=== PATIENT | female | born 1985 ===

== ENCOUNTER 2019-04-21 13:23 | Inpatient (IN) | payer OTHER ==
[~2019-04-21] VITALS: Ht 165.1 cm; Wt 69.4 kg
[2019-04-21] MEDS ORDERED: PRENATAL 19 TA1 EAC1 PO (16:13)
[2019-04-21] MEDS ORDERED: SYNTHROID75 MCG PO (16:14)
== END 2019-04-24 13:29 | disposition home or self-care (01) | DRG 807 ==
LOC: LDR 13:23 → SURG-SUITE 13:23 → LDR 14:59 → OB/GYN 04-22 00:44 → SURG-SUITE 04-22 09:58
PROVIDERS: ADMIT Obstetrics & Gynecology
PROC: 3E0P7VZ Introduction of Hormone into Female Reproductive, Via Natural or Artificial Opening (ICD-10-PCS; 2019-04-21)
PROC: 4A1HXCZ Monitoring of Products of Conception, Cardiac Rate, External Approach (ICD-10-PCS; 2019-04-21)
PROC: 10E0XZZ Delivery of Products of Conception, External Approach (ICD-10-PCS; principal; 2019-04-22)
PROC: 0HQ9XZZ Repair Perineum Skin, External Approach (ICD-10-PCS; 2019-04-22)
PROC: 3E033VJ Introduction of Other Hormone into Peripheral Vein, Percutaneous Approach (ICD-10-PCS; 2019-04-22)
DX: O70.0 First degree perineal laceration during delivery (principal); Z37.0 Single live birth; Z3A.40 40 weeks gestation of pregnancy